=== PATIENT | female | born 2000 | race Caucasian/White ===

== ENCOUNTER 2021-05-02 20:02 | Emergency (ER) | payer OTHER ==
[~2021-05-02 20:02] MED LIST: IBUPROFEN600 MG PO; MACROBID 100 M100 MG PO; ZOFRAN4 MG PO
== END 2021-05-02 21:25 | disposition home or self-care (01) ==
LOC: ER1 20:02
DX: S99.911A Unspecified injury of right ankle, initial encounter (principal); R11.2 Nausea with vomiting, unspecified; R42 Dizziness and giddiness; K21.9 Gastro-esophageal reflux disease without esophagitis; Z90.49 Acquired absence of other specified parts of digestive tract; X50.1XXA Overexertion from prolonged static or awkward postures, initial encounter
CPT/HCPCS: 81001; 84703; 99284

== ENCOUNTER 2021-06-02 00:13 | Emergency (ER) | payer OTHER ==
[2021-06-02] MEDS ORDERED: IBUPROFEN600 MG PO (01:20)
== END 2021-06-02 01:40 | disposition home or self-care (01) ==
LOC: ER1 00:13
DX: S82.301A Unspecified fracture of lower end of right tibia, initial encounter for closed fracture (principal); Z88.8 Allergy status to other drugs, medicaments and biological substances; X50.1XXA Overexertion from prolonged static or awkward postures, initial encounter; Y92.009 Unspecified place in unspecified non-institutional (private) residence as the place of occurrence of the external cause
CPT/HCPCS: 29540; 73610; 99283

== ENCOUNTER 2021-06-11 18:54 | Emergency (ER) | payer OTHER ==
[2021-06-11 20:02] LABS: HEMOGLOBIN 13.8 gm/dl (12.3-15.3); RED BLOOD COUNT 4.65 M/UL (4.00-5.10); WHITE BLOOD COUNT 9.6 K/UL (4.5-11.0)
[2021-06-11 20:33] LABS: BUN/CREATININE RATIO 19 (0-10)
[2021-06-11] MEDS ORDERED: OMNICEF 300 MG300 MG PO (22:12)
[2021-06-13 21:12] LABS: CHLAMYDIA TRACHOMATIS, NAA Negative (Negative); NEISSERIA GONORRHOEAE, NAA Negative (Negative)
== END 2021-06-11 22:20 | disposition home or self-care (01) ==
LOC: ER1 18:54
PROVIDERS: Physician Assistant
DX: N39.0 Urinary tract infection, site not specified (principal)
CPT/HCPCS: 71045; 80053; 81001; 84703; 85025; 85379; 99284

== ENCOUNTER → 2021-06-25 | Outpatient (CLI) | payer OTHER ==
[~2021-06-25] MED LIST changes: +OMNICEF 300 MG300 MG PO
== END ==
LOC: KOH-I 09:01
DX: S82.891A Other fracture of right lower leg, initial encounter for closed fracture (principal); M79.89 Other specified soft tissue disorders
CPT/HCPCS: 73610

== ENCOUNTER → 2021-07-23 | Outpatient (CLI) | payer OTHER | LOC: KOH-I 13:53 | DX: S82.51XS Displaced fracture of medial malleolus of right tibia, sequela (principal) | CPT/HCPCS: 73610 ==

== ENCOUNTER → 2021-08-29 | Outpatient (CLI) | payer OTHER | LOC: KOH-I 08:37 | DX: S82.891D Other fracture of right lower leg, subsequent encounter for closed fracture with routine healing (principal) | CPT/HCPCS: 73610 ==

== ENCOUNTER 2021-12-06 20:20 | Emergency (ER) | payer OTHER ==
[~2021-12-06 20:20] MED LIST changes: +IBUPROFEN800 MG PO
[2021-12-07] MEDS ORDERED: ZOFRAN ODT 4 MG4 MG SL (00:01)
== END 2021-12-06 23:54 | disposition home or self-care (01) ==
LOC: ER1 20:20
DX: R11.2 Nausea with vomiting, unspecified (principal)
CPT/HCPCS: 81001; 84703; 99284

== ENCOUNTER → 2022-01-02 | Outpatient (CLI) | payer OTHER ==
[~2022-01-02] MED LIST changes: +ZOFRAN ODT 4 MG4 MG SL
== END ==
LOC: KOH-I 10:25
DX: M54.2 Cervicalgia (principal)
CPT/HCPCS: 72040

== ENCOUNTER → 2022-03-06 | Outpatient (CLI) | payer OTHER | LOC: KOH-I 15:40 | DX: S82.891A Other fracture of right lower leg, initial encounter for closed fracture (principal) | CPT/HCPCS: 73610 ==

== ENCOUNTER 2022-04-01 22:41 | Emergency (ER) | payer OTHER ==
[2022-04-01 23:21] LABS: HEMOGLOBIN 13.8 gm/dl (12.3-15.3); RED BLOOD COUNT 4.61 M/UL (4.00-5.10); WHITE BLOOD COUNT 11.1 K/UL (4.5-11.0)
[2022-04-01 23:49] LABS: BUN/CREATININE RATIO 18 (0-10)
== END 2022-04-02 01:33 | disposition home or self-care (01) ==
LOC: ER1 22:41
PROVIDERS: Physician Assistant
DX: R07.9 Chest pain, unspecified (principal)
CPT/HCPCS: 71045; 73630; 80053; 81001; 82550; 82553; 84484; 84703; 85025; 93005; 99285